=== PATIENT | male | born 1950 | race Caucasian/White ===

== ENCOUNTER → 2021-07-29 10:05 | Outpatient (CLI) | payer OTHER, SELFPAY ==
[2021-07-29 11:08] LABS: Prostate Specific Antigen 4.64 ng/mL (0.10-4.00)
== END ==
PROVIDERS: PCP Family Medicine; Referring Provider Specialist; Visit Provider Specialist
DX: R97.20 Elevated prostate specific antigen [PSA] (principal); N40.1 Benign prostatic hyperplasia with lower urinary tract symptoms; N13.8 Other obstructive and reflux uropathy; Z80.42 Family history of malignant neoplasm of prostate
CPT/HCPCS: 36415; 51798; 81002; 84153; 99214

== ENCOUNTER → 2022-10-01 11:05 | Outpatient (CLI) | payer OTHER, SELFPAY ==
[2022-10-01 11:24] LABS: COVID19 -Nasal RAPID Negative (Negative)
== END ==
PROVIDERS: PCP Family Medicine; Visit Provider Specialist
DX: Z20.822 Contact with and (suspected) exposure to COVID-19 (principal)
CPT/HCPCS: 87635

== ENCOUNTER 2022-10-04 10:48 | Inpatient (IN) | payer OTHER, SELFPAY ==
[2022-09-29 13:56] VITALS: BMI 25.7
[2022-10-04] VITALS (10 sets, daily range): BP systolic 106–169; BP diastolic 41–88; PULSE 75–88; RESP 11–17; TEMP 36.9–37.8; O2SAT 95–98; BMI 25.7
--- NOTE | 2022-10-04 | PATH_ITS ---
[facility] Accession Number: [id number] . 01 Material submitted: . PART A: lymph node - RIGHT PELVIC LYMPH NODES PART B: lymph node - LEFT PELVIC LYMPH NODES PART C: prostate - PROSTATE WITH ATTACHED SEMINAL VESICLES . 01 Diagnosis: A. Right Pelvic Nodes, Dissection: Three lymph nodes negative for metastatic carcinoma by immunohistochemistry studies (0/3). . B. Left Pelvic Lymph Nodes, Dissection: Three lymph nodes negative for metastatic carcinoma by immunohistochemistry (0/3). . C. Prostate with Attached Seminal Vesicles, Prostatectomy: Positive for prostatic adenocarcinoma. Please see Cancer Case Summary, below. . . CANCER CASE SUMMARY: Procedure: Radical prostatectomy with attached seminal vesicles. Prostate Weight: 27 grams. Prostate Size in Centimeters: 5.9 x 3.9 x 3.2. . Tumor Histologic type: Acinar adenocarcinoma. Histologic grade Grade group 1 (Yuma score 3+3=6). Intraductal carcinoma: Not identified. Cribriform glands: Not identified. Treatment effect: No known presurgical therapy. . Tumor quantitation Estimated percentage of prostate involved by tumor: 31-40%. Greatest dimension of dominant nodule: 20 mm. Location of dominant nodule: Anterior, slice 2 of 6. Extraprostatic extension: Not identified. Cellular focus in C13 is negative for epithelial tumor by immunohistochemistry studies. Urinary bladder neck invasion: Not identified. Seminal vesicle invasion: Not identified. Lymphovascular invasion: Not identified. . Margins Margin status: All margins negative for invasive carcinoma. . Regional lymph nodes Regional lymph node status: All regional lymph nodes negative for tumor. . Distant metastasis Distant metastasis: Not applicable. . Pathologic stage classification (pTNM, AJCC 8th Edition): pT2 pN0 (no positive regional nodes) pM: Not applicable. . Additional findings: Scattered necrotizing granulomas present. AFB and GAS stains performed on block C9 are negative for acid fast and fungal organisms; the control tissue stained appropriately. MRV 10/15/2022 1319 Local . 01 Comment: As part of routine it quality assurance analyst, slide C13 of this case was also reviewed by Dr. Zamarripa, who agrees with the interpretation. . 01 Electronically signed: . Africa Miller MD, Pathologist NPI- [id number] . 01 Gross description: . A. Received in formalin labeled with the patient's name, and RT pelvic lymph nodes, and consists of a yellow irregular soft tissue fragment measuring 3.2 x 2.2 x 0.6 cm. Palpation reveals three causey lymph node candidates ranging from 0.6 to 1.7 cm in greatest dimension. Sections are submitted as follows; . A1: Two intact lymph node candidates. A2: Single bisected lymph node candidate. . B. Received in formalin labeled with the patient's name, and left pelvic lymph nodes, and consists of a fragment of irregular yellow soft tissue measuring 2.9 x 1.5 x 0.8 cm. Palpation reveals three causey lymph node candidates ranging from 0.7 to 1.6 cm in greatest dimension. Sections are submitted as follows: . B1: Two intact lymph node candidates. B2: Single bisected lymph node candidate. . C. Received in formalin labeled with the patient's name, and prostate with attached seminal vesicles, and consists of a prostate with attached bilateral seminal vesicles weighing 27 grams and measuring 5.9 cm SI, 3.9 cm ML, and 3.2 cm AP. The external surface is causey to brown and roughened. The right seminal vesicle measures 2.9 cm in length and 0.9 cm in diameter while the left seminal vesicle measures 2.2 cm in length and 0.8 cm in diameter. The margins are inked as follows: right anterior blue, left anterior green, posterior black. The specimen is sectioned from apex to base into six slices which reveal an ill-defined pale yellow hard area located anteriorly and measuring 1.8 x 1.7 x 1.7 cm. The remaining parenchyma is causey-brown and unremarkable. Library Clerical Assistant sections are submitted as follows: . C1: Slice 1 right apex margin perpendicular. C2: Slice 1 left apex margin perpendicular. C3: Right base margin perpendicular. C4: Left base margin perpendicular. C5: Library Clerical Assistant left seminal vesicle and vas deferens. C6: Library Clerical Assistant right seminal vesicle and vas deferens. C7: Entire slice 2. C8-C9: Composite slice 3. C10-C11: Composite slice 4. C12-C13: Composite slice 5. ([id number]) /MRV 10/06/2022 1828 Local . 01 Microscopic: . An PAZ immunohistochemical stain is performed to further evaluate the cells of interest. The control stains showed appropriate reactivity. . RESULTS: Blocks A1, A2, B1 and B2: PAZ: Negative for metastatic tumor. Findings support an interpretation of negative for metastatic carcinoma. . C13 PAZ: Negative in region of interest. Findings mitigate against the presence of extraprostatic extension. . 01 Pathologist provided ICD-10: C61 . 01 CPT . 589886, 784884, [id number], [id number], 904889, 138111 Specimen Comment: A courtesy copy of this report has been sent to [phone] Performed at: 01 [facility] [address] [place] [address] [address] [facility], [place], [place] [id number] MD Saurav Maria MD Phone: [phone]
[2022-10-04] MEDS: LACTATED RINGERS 1,000 ML 21 ML IV ×2 (11:00→13:44)
--- NOTE | 2022-10-04 12:20 | PM.PREOP ---
Pre-operative Note COVID-19 Criteria for continued procedure: Expected advancement of disease process, Possibility delay results in more complex future surgery or treatment, Deterioration of the patient's condition or overall health, Delay expected to result in less-positive ultimate med/surg outcome and Non-surgical alternatives not available or appropriate per current SOC Interval Note History & Physical reviewed/Exam performed by Physician: Yes Changes to H&P: No
[2022-10-04] MEDS: CEFAZOLIN 2 GM/100 ML PREMIX 100 ML IV (12:50)
--- NOTE | 2022-10-04 13:13 | SUR.OPER ---
Addendum entered by Lynda Latham R.N. 10/04/22 13:15: Illiac crest at break in bed, bed extended with back and feet down. Original Note: Supine on padded OR bed, head on pillow, arms secured on padded arm boards at <90 degrees abduction, legs uncrossed, safety belt at thigh, tape over blanket over lower legs. Gel pad under heels, pillow under knees.
[2022-10-04] MEDS: BUPIVACAINE LIPOSOME 266 MG/20 ML VIAL INJ (13:35)
[2022-10-04] MEDS: SODIUM CHLORIDE 0.9% FLUSH 20 ML IV (13:36)
[2022-10-04 13:39] LABS: Appearance Urine UA CLEAR; Bilirubin Urine UA NEGATIVE (NEGATIVE); Color Urine UA YELLOW; Glucose Urine UA NEGATIVE (Negative); Ketones Urine UA TRACE (NEGATIVE); Leukocyte Esterase Urine UA NEGATIVE (NEGATIVE); Nitrite Urine UA NEGATIVE (Negative); Occult Blood Urine UA 2+ (Negative); Protein Urine UA NEGATIVE (Negative); Urobilinogen Urine UA 0.2 E.U./dL (0.2); pH Urine UA 5.5 (4.5-8.0)
[2022-10-04 13:49] LABS: Bacteria Urine None Seen; Culture Indicated Urine Cult Not Indicated; RBC Urine 1-5/HPF (0-5/HPF); Squamous Epithelial Cell Urine 5-10 /HPF (0-5/HPF); WBC Urine None Seen (0-5/HPF)
[2022-10-04] MEDS: TRANEXAMIC ACID 1,000 MG in SODIUM CHLORIDE 0.9% 100 ML 200 MG IV (13:50)
[2022-10-04] MEDS: ACETAMINOPHEN IV 1,000 MG/100 ML VIAL 400 MG IV (15:10)
--- NOTE | 2022-10-04 15:46 | P.OP_ITS ---
Operative Date/Time/Diagnoses Date of procedure: 10/04/22 Time of procedure: 15:35 Pre-op diagnosis: Prostate cancer Post-op diagnosis: same Procedure & Clinicians Procedure: 1. Radical retropubic prostatectomy and bilateral pelvic lymphadenectomy. Same procedure as scheduled: Yes Indications: 1. Prostate cancer Surgeon: Dwayne Montana Build And Release Manager: Matthew Huff Click Yes if Unassisted: No Anesthesia Type: General and Local (1.33% Exparel) Operative Notes Findings: 1. Palpably and visibly normal pelvic lymph nodes. 2. Normal midline abdominal pelvic tissue planes. 3. Normal appearing and palpable prostate and seminal vesicles. Closure Type: primary Specimen(s): other (1. Bilateral pelvic lymph nodes. 2. Prostate with attached seminal vesicles.) Applied: catheter (Eighteen [place] silicone Brand catheter to gravity drainage.) Estimated Blood Loss (mL): 50 Blood products transfused: none Procedure in detail: Patient was positioned in supine was administered general anesthesia following successful placement of Duramorph spinal anesthesia. The abdomen, genitalia, and groin were then prepped and draped in sterile fashion. A 20 [place] Brand catheter was inserted lower urinary track in the balloon was filled to 20 cc and the bladder contents drained. A midline infraumbilical incision was then made using a combination of sharp, blunt, and cautery technique to level of the extraperitoneal pelvic fat. The anterior and lateral pelvic sidewalls were then carefully exposed using blunt technique. Bilateral pelvic lymph node dissection was then carried out using the same steps and maneuvers bilaterally as follows: The thin abdomen tissue overlying the external iliac vein was carefully elevated and divided along its length. External iliac vein was in carefully reflected anteriorly and laterally in the remington packet was carefully dissected from its confines. The obturator nerve in vessels were identified and were from the operative field during the lymph node packet dissection. The LigaSure Impact device was then used to maintain hemostasis and create lymph stasis proximally and distally. Each remington packet was then handed off the field to be submitted for routine gross and microscopic examination. The endopelvic fascia was then carefully divided on either side of the prostate and levator musculature was reflected distally. The dorsal venous complex was then gathered with a large Cody clamp and careful manipulation downward created access to the dorsal venous complex which was then divided using the LigaSure Impact device. Hemostasis was excellent. The pupil prostatic ligaments were divided in conducting this maneuver. Careful dissection was then carried out using blunt and cautery technique and the prostatic apex was then isolated and the membranous urethra was identified. The membranous urethra was then isolated and elevated off the rectal wall. Was then divided sharply just beyond the prostate. A catheter was then brought into the pelvis to allow reflection of the prostate anteriorly and superiorly. The rectal urethralis musculature was then carefully peripheral late in the midline and then were divided using cautery technique to elevate the prostate apex. Blunt technique was then used to create a plane between the anterior rectal wall and non VA is fashion. The posterior lateral vascular pedicles were then carefully isolated sequentially. Large heme lock clips were applied on the patient's side and on the prostate side the pedicles were divided using LigaSure Impact device. Now with the prostate elevated and reflected at the level of the seminal vesicles 10 on these fascia was carefully opened in the ample the vas in the bilateral seminal vesicles were identified. The up is the vas were carefully isolated. Large clips were applied proximally distally and then were sharply divided. The seminal vesicles were then carefully dissected from the confines with application of medium heme lock clips were indicated for hemostasis. Now meticulous blunt dissection was carried out the level of the bladder neck to separate it from the base of the prostate circumferentially. The bladder neck was then divided and the prostate with attached seminal vesicles were submitted for routine gross and microscopic examination. Next, the bladder mucosa was effaced using a Lembert like technique to create neobladder neck. The Merrick sound was then advanced through the penis and then the flanges were engaged to expose the membranous urethra for visualization. 2-0 Monocryl suture replaced at 2, 4, 6, 8, and 10 o'clock through the membranous urethral stump. The same sutures were then brought through their corresponding position through the neobladder neck. An 18 [place] silicone Brand catheter was then advanced through the penile meatus into the pelvis and then the tip was carefully positioned within the bladder lumen. The balloon was then filled with 15 cc of sterile for water. Gentle traction was applied laura approximating the reconstructed bladder neck and urethral stump stump. The sutures were tied down individually thus completing the vesicourethral anastomosis. Catheter was then irrigated and th ere is no evidence of blood or clot within the bladder lumen. Next a 15 [place] Rah drain was positioned the space of Retzius and brought out through a separate stab incision to the right of midline incision. The drain was secured of level the skin using a Sony sandal technique in usual fashion. The midline rectus fascia was then reapproximated using a running 0 PDS beginning each at the superior, in the inferior incision apex, then running each toward the midline, at which point they were tied to 1 another. The subcuticular layer was reapproximated using a running 2-0 Vicryl. The skin was reapproximated using running subcuticular 4-0 Monocryl. Skin surface was cleaned and dried. Telfa gauze was then tailored appropriately for the drain site and the midline infraumbilical incision. Transparent Op site was then applied over each of these for the finish dressing. The catheter was placed to gravity drainage and the Rah drain was placed to bulb self suction. The patient was then awakened, transferred to [facility], and transported to recovery in stable condition. Complications: none Post-operative Condition: stable Disposition: PACU Plan for aftercare: Admit to acute care.
[2022-10-04] MEDS: LACTATED RINGERS 1,000 ML 125 ML IV (16:45)
--- NOTE | 2022-10-04 17:29 | PC.NURSE ---
Patient brought up from PACU 1620. Oriented to room and call light. VSS. Denies pain at this time. Bulb drain to right abdomen intact and compressed. Brand in place draining clear yellow urine. Lower abdomen/pelvic incision is covered with telfa and tegaderm and is CDI. Call light placed within reach.
[2022-10-04] MEDS: ATORVASTATIN 20 MG TABLET 10 MG PO (20:43)
[2022-10-05] VITALS: BP 116/65; PULSE 70; RESP 17; TEMP 36.8; O2SAT 94
[2022-10-05] MEDS: LACTATED RINGERS 1,000 ML 125 ML IV (00:12)
[2022-10-05 04:00] VITALS: BP 120/63; PULSE 78; RESP 17; TEMP 37.4; O2SAT 96
--- NOTE | 2022-10-05 04:26 | PC.NURSE ---
Pt is AxOx4, needs STA and cooperative. VSS, pt denies pain and slept well all night. Brand is draining clear and yellow urine. No other changes. Continue monitor.
[2022-10-05] MEDS: LEVOTHYROXINE 150 MCG TABLET PO (05:36)
[2022-10-05] MEDS: PANTOPRAZOLE DR 20 MG TABLET PO (05:36)
[2022-10-05 08:00] VITALS: BP 135/63; PULSE 69; RESP 18; TEMP 36.5; O2SAT 97
[2022-10-05] MEDS: ENOXAPARIN 40 MG/0.4 ML SYRINGE SUBCUT (08:42)
--- NOTE | 2022-10-05 10:34 | CM.DANOTE ---
DCP: Case received, EMR reviewed and met with patient. Introduced self and role. Was able to obtain information regarding patient's baseline activity status prior to his surgery. DCP assessment completed with information currently available. Patient is a 72 year old male who admitted yesterday morning to the care of the urologist team. PCP: Dr. Burkett. Payer: confirmed: [facility]. Patient came to the hospital via private vehicle for a surgical procedure. Patient had radical retropubic prostatectomy and bilateral pelvic lymphadenectomy. Patient has history of prostace cancer. Met with patient in his room. He is alert and oriented, and resides with spouse, Julieth, in [place]. He was sitting up in his chair. He is independent at baseline, and has been employed at [employer]. P: DCP to continue to follow. Patient should be able to go home when deemed medically stable. Anabella Marcelino RN/Porcelain Enameler - Discharge Planning/Care Management Advanced directive, confirm from FAMILY Start: 10/04/22 16:59 Freq: Q24H Status: Active Protocol: Document 10/04/22 17:02 CLP (Rec: 10/04/22 17:02 CLP [id number]) Advance Directive, confirm on record Time 17:02 Person contacted patient Copy received No CM Discharge Assessment Start: 10/05/22 10:32 Freq: Status: Active Protocol: Document 10/05/22 10:33 (Rec: 10/05/22 10:34 [id number]) Discharge Planning Assessment Assigned Business Continuity Manager Anabella Marcelino RN/Porcelain Enameler Advance Directives? Yes Advance Directives on File No History Provided By Patient,Medical Record Prior Living Arrangements House Household Members spouse Type of transporation used prior to Drives own vehicle admit Independent with ADL's Yes Is patient alert and oriented? Yes Caregiver for Another Yes Discharge Plan Home Transportation Arrangement Spouse Referrals Initiated None needed Whiteboard Updated in Patient Room with Yes name and ext. # of Business Continuity Manager Review Status In Process Next Review Type Continued Stay Review Pre-Anesthesia Assessment Start: 09/29/22 13:56 Freq: Status: Active Protocol: Document 09/29/22 13:56 CAB (Rec: 09/29/22 14:42 CAB [id number]) Pre-Anesthesia Assessment Preferred Name Tristin Patient Information Reviewed Via Phone Assessment Comment COVID screen @ 10/01/22 Primary Care Provider Matthew Burkett Seen Specialist in Last 12 Months Yes Specialist Seen Laborer Operator,Urologist Primary Language Citizen Of [place] Yoker Machine Operator Required No Height 6 ft 1 in Weight 195 lb Body Mass Index (BMI) 25.7 Hearing Ability Normal Visual Impairment No Limitations Visual Assist None Dentition Type Teeth, Natural Present Barriers to Learning None Hx Anesthesia Reactions Yes: PONV Hx Family Anesthesia Reaction No Hx Malignant Hyperthermia No Hx Blood Transfusions No Anesthesia Review Requested No alcohol intake never Smoking Status Never smoker Substance Use Type does not use Pain Present Pain Reported History of Falling (Recent or History of No ) Patient is completely paralyzed or No completely immobile Mental Status Oriented to own ability Is patient on oxygen? No Does patient have SHELTON/SOB No Hx Sleep Apnea No Currently Taking a Beta Christin No Can You Climb a Flight of Stairs Without No SOB Hx Chest Pain No Hx SOB No Hx Syncope or Dizziness No Anti-Coagulant Therapy Yes: ASA 162mg BID-pt will check w/cardiology on when/if to hold Has a Laborer Operator Yes: Visit 04/08/[address] Liu Cardiac Testing No Hx Pacemaker/ICD No Pacemaker Rep Required? No Comment Cardiac records scanned Diet Type At Home Regular Dysphagia No Gastrointestinal Symptoms Reflux Chronic UTI No Bladder Pattern Frequency Urinary Catheter Present No Hx Urinary Self Catheterization No Diabetes No Hx Drug Resistant Organism No Presence of External or Internal Medical Yes: Cardiac stent Devices Have you had any close contact with No someone diagnosed with COVID-19? Received a COVID vaccine? Yes Received all doses? Yes Marital Status Lives With spouse Current Living Arrangements House Number of Floors (Floors) One Floor Support System Spouse Does the Patient Have Assistance After Yes Surgery Patient Discharge Plan Description Return Home Comment Pt advised 2 day length of stay per surgeon Feels Safe in Current Environment Yes Been Physically Hurt or Threatened By a No Person in Current Environment Do you have thoughts of harming yourself None or others? Are you currently considering suicide? No Do you have a plan to hurt yourself or No Plan others? Do You Have Any Spiritual Beliefs That No May Affect Your HC Choices? Do You Have Any Cultural Practices That No May Affect Your HC Choices? Who Can We Speak to About Patient's Care Family, friends Identifying Code for Release of Patient Declines to issue Information Health Care Proxy/Next of Kin Julieth () Health Care Proxy Emergency Contact Name Julieth () Emergency Contact Advance Directives? Yes Advance Directives on File No Requested Patient Bring Advanced Yes Directives DOS Power of Window Installer No PAC Instructions Medications to take/avoid,No ETOH/petroleum product on skin DOS,NPO,Sensory aids,Sturdy shoes/comfortable clothes,Do not bring valuables and remove jewelry
[2022-10-05 12:00] VITALS: BP 126/58; PULSE 75; RESP 18; TEMP 36.8; O2SAT 97
--- NOTE | 2022-10-05 13:07 | PM.DS.1 ---
History of Present Illness History of Present Illness Date Patient Seen: 10/05/22 Time Patient Seen: 12:40 Chief complaint: Prostatectomy Narrative: Patient is a 72-year-old male that underwent uncomplicated radical retropubic prostatectomy and bilateral pelvic lymphadenectomy under Duramorph spinal and general anesthesia 10/04/2022, for presumed localized adenocarcinoma the prostate and strong family history of prostate cancer. Discharge Providers Provider Date of admission: 10/04/22 10:48 Discharge Date: 10/05/22 Primary care physician: Matthew Burkett MD Discharge provider: Dwayne Montana MD Summary Hospital Course Discharge Diagnosis: 1. Prostate cancer. 2. Family history of prostate cancer. Hospital Course: Patient was admitted on 10/04/2022 and underwent uncomplicated radical retropubic prostatectomy and bilateral pelvic that ectomy under general and Duramorph spinal anesthesia. His postoperative course was entirely unremarkable in that he tolerated general diet was able to transfer and ambulate without assistance and had no significant postoperative pain and did not require narcotic analgesics. He was stable for discharge in the morning of 10/05/2022. Routine activity, hygiene, and driving, in catheter care use and restriction instructions were provided. Postoperative medication resumption and additions reviewed and explained including common side effects, and precautions. Exam Vital Signs (past 8 hours): - 10/05/22 08:00 10/05/22 12:00 Temperature 97.7 F 98.3 F Pulse Rate 69 75 Respiratory Rate 18 18 Blood Pressure 135/63 126/58 L Pulse Oximetry 97 97 Oxygen Flow Rate 0 0 Oxygen Delivery Method Room Air Oxygen Flow Rate 0 Narrative Exam Narrative: Sitting upright in bed and in no distress. Abdomen-scaphoid soft. Dressing is intact. GUILLERMO with scant serosanguineous output. Genitalia-indwelling Brand catheter with clear light straw-colored output without clots. Extremities-no edema, pallor, or cyanosis. Objective Labs Labs: Laboratory Results - last 24 hr 10/04/22 13:05 Urine Color Yellow Urine Appearance Clear Urine pH 5.5 Ur Specific [employer] [employer] 1.020 Urine Protein Negative Urine Glucose (UA) Negative Urine Ketones Trace H Urine Occult Blood 2+ H Urine Nitrate Negative Urine Bilirubin Negative Urine Urobilinogen 0.2 Ur Leukocyte Esterase Negative Urine RBC 1-5/hpf Urine WBC None seen Ur Squamous Epith Cells 5-10 /hpf H Urine Bacteria None seen Ur Culture Indicated? Cult not indicated PFSH Medical History Arthritis BPH w urinary obs/LUTS Elevated PSA Family history of prostate cancer GERD (gastroesophageal reflux disease) Hiatal hernia History of left heart catheterization (01/29/22) HTN (hypertension) Hyperlipemia Neuropathy Non-STEMI (non-ST elevated myocardial infarction) (2010) Prostate cancer Thyroid cancer (~1991) Thyroid disease Surgical History H/O heart artery stent (2010) H/O laparoscopy History of surgery Hx of arthroscopy of right knee Hx of bilateral cataract extraction Hx of thyroidectomy (~1991) Hx of tonsillectomy Family History Father Cancer CAD (coronary artery disease) Mother CVA (cerebral vascular accident) UTI (urinary tract infection) Social History marital status: number of children: 2 household members: spouse 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 Stable postoperative day 1 status post radical retropubic prostatectomy and bilateral pelvic lymphadenectomy. 2. Pathology pending. Plan of Treatment: 1. Discharge home today. 2. Outpatient supervised voiding trial approximately 2 weeks, to be arranged with [facility]. 3. Catheter care and use instruction. 4. Follow-up in discuss pathology report by telephone when final. Discharge Plan Discharge Plan Patient Disposition: Home Provider Discharge Comment: Contact [facility]rology Clinic 07/06/2022 schedule outpatient follow-up. Discharge orders & Medications Prescriptions: New oxycodone 5 mg Tablet 5 mg PO Q4H PRN (Reason: Pain, Moderate (4-6)) Qty: 20 0RF enoxaparin [Lovenox] 40 mg/0.4 mL Syringe 40 mg SUBCUT DAILY 30 Days Qty: 12 0RF ciprofloxacin HCl 250 mg tablet 250 mg PO BID Qty: 6 0RF Rx Instructions: Take 1st tablet in the morning, the day before catheter removal. Continued cholecalciferol (vitamin D3) [Vitamin D3] 25 mcg (1,000 unit) Tablet 25 mcg PO DAILY levothyroxine 150 mcg capsule 150 mcg PO DAILY omeprazole 20 mg capsule,delayed release(DR/EC) 20 mg PO DAILY atorvastatin 10 mg tablet 20 mg PO DAILY ascorbic acid (vitamin C) 500 mg capsule 500 mg PO DAILY zinc sulfate [Zinc-15] 1 tab PO DAILY Discontinued finasteride 1 mg tablet 1 mg PO DAILY aspirin 81 mg tablet,delayed release (DR/EC) 162 mg PO BID Label Comments: Pt has reduced to 81mg tablets, but has not completely stopped prior to surgery. Follow up/Referrals: Matthew Burkett MD [Primary Care Provider] - Diet/Activity/Treatments Diet: Diet as Tolerated Activity: Left no objects heavier than 15 lb x 4 weeks. Catheter: 2-way Brand Catheter comment: Use large bag in-home and and night. Use leg bag when out of home. Skin/Wound/Dressing Care Skin care: May shower daily. No submersion in water x2 weeks. Dressing: Leave incision open to air. Visit Report/Discharge Packet Instructions: DI for Radical Prostatectomy, DI for Prescription Opioid Use Stand Alone Forms: Surgery Discharge Discharge Data Primary Care Provider: Matthew Burkett
== END 2022-10-05 14:18 | disposition home or self-care (01) | DRG 708 ==
PROVIDERS: Admitting Provider Specialist; PCP Family Medicine; Referring Provider Specialist; Visit Provider Specialist
PROC: 0VT00ZZ Resection of Prostate, Open Approach (ICD-10-PCS; principal; 2022-10-04 12:15)
DX: C61 Malignant neoplasm of prostate (principal); E07.9 Disorder of thyroid, unspecified; E78.5 Hyperlipidemia, unspecified; K21.9 Gastro-esophageal reflux disease without esophagitis; Z20.822 Contact with and (suspected) exposure to COVID-19
CPT/HCPCS: 55845; 81001; 87086; 87635; C9290; J0131; J0690; J1100; J1650; J2250; J2274; J2405; J2704; J3010

== ENCOUNTER 2022-10-20 13:45 | Outpatient (RCR) | payer OTHER, SELFPAY ==
[2022-10-04 16:50] VITALS: BMI 25.7
--- NOTE | 2022-10-13 10:33 | PT.OIE ---
Current Diagnoses Malignant neoplasm of prostate (10/13/22) Other obstructive and reflux uropathy (10/13/22) Benign prostatic hyperplasia with lower urinary tract symptoms (10/13/22) Elevated prostate specific antigen [PSA] (10/13/22) Family history of malignant neoplasm of prostate (10/13/22) Past Medical History (Last Reviewed 10/05/22 @ 13:11 by Dwayne Montana MD) Arthritis BPH w urinary obs/LUTS Elevated PSA Family history of prostate cancer GERD (gastroesophageal reflux disease) Hiatal hernia History of left heart catheterization (01/29/22) HTN (hypertension) Hyperlipemia Neuropathy Non-STEMI (non-ST elevated myocardial infarction) (2010) Prostate cancer Thyroid cancer (~1991) Thyroid disease Past Surgical History (Last Reviewed 10/05/22 @ 13:11 by Dwayne Montana MD) H/O heart artery stent (2010) H/O laparoscopy History of surgery Hx of arthroscopy of right knee Hx of bilateral cataract extraction Hx of thyroidectomy (~1991) Hx of tonsillectomy Visit Care Team Role Provider Type Matthew Burkett MD Family Provider Non-Staff Primary Care Provider Specialty: Family Practice Address: [address] [place] [address], [id number] Email: Dwayne Montana MD Attending Provider Physician Referring Provider Specialty: Urology Address: [address] [place] [address], [id number] Email: Physical Therapy Initial Evaluation PT-OP-A Visit Information Start: 10/08/22 12:01 Freq: Status: Active Protocol: Document 10/13/22 07:30 AMB (Rec: 10/13/22 08:15 AMB [id number]) Out-Patient Physical Therapy Visit Information Visit Information Visit Type Initial Evaluation Visit Start Time 07:30 Visit Stop Time 08:15 Total Visit Minutes 45 Visit Number 1 PT-OP-B Current Condition Start: 10/08/22 12:01 Freq: Status: Active Protocol: Document 10/13/22 07:30 AMB (Rec: 10/13/22 08:15 AMB [id number]) Current Condition History of Current Condition Onset Date 10/04/22 Current Complaints s/p prostatectomy History of Current Condition Before surgery was getting up 1-2/night. Was urinating sometimes every hour and a half but then could hold 4-5 hours. Denies urgency, denies any previous leaking. Is currently catheterized, getting catheter out on Tuesday . Personal Factors Other Personal Factors That May Effect Hx [place], stent placed 2009, hx Therapy/Recovery thyroid CA PT-OP-I Pelvic Floor Start: 10/08/22 12:01 Freq: Status: Active Protocol: Document 10/13/22 07:30 AMB (Rec: 10/13/22 08:15 AMB [id number]) Pelvic Floor Assessment Comments Pelvic Floor Comments Pt declined biofeedback and internal asessment, feels he is maria eugenia his pelvic floor appropriately and reports he can hold for 10 seconds PT-OP-T Assessment and Plan Start: 10/08/22 12:01 Freq: Status: Active Protocol: Document 10/13/22 07:30 AMB (Rec: 10/17/22 10:33 AMB [id number]) Physical Therapy Assessment Rehab Potential Rehabilitation Potential Good Evaluation Complexity Number of Personal Factors/Comorbidities 1-2 Number of Body Systems Impaired 1-2 Clinical Presentation at Evaluation Stable Impairments Impairments Functional Activities,Strength Goals Two Short Term Goal (STG) Tristin will move from sit to stand without leaking urine. 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 LTG Duration 10 weeks One Impairment Pelvic floor strength Short Term Goal (STG) Tristin will contract his pelvic floor while moving from sit to stand. STG Duration 5 weeks [facility]cf Goal (LTG) Tristin will be independent with a pelvic floor strengthening HEP. LTG Duration 10 weeks Assessment Summary Assessment Tristin attends physical therapy 9 days s/p prostatectomy, he is still catheterized, so he cannot speak to any incontinence yet. He declined internal and biofeedback assessment at this time, but would be open to it if he is having incontinence after the catheter is removed. After extensive education in pelvic floor musculature he felt confident he could contract his muscles. He will benefit from physical therapy for more strengthening, depending on his level of incontinence after catheter removal. Physical Therapy Plan Frequency and Duration Frequency of Treatment 1x/Week Duration of treatment (weeks) 10 Plan of Care Start Date 10/13/22 Plan of Care End Date 12/22/22 Therapeutic Interventions Therapeutic Interventions Home Exercise Program,Joint Mobilizations,Manual Therapy, Neuromuscular Re-education, Self-Care/Home Management, Therapeutic Activities, Therapeutic Exercises Modalities Biofeedback,Electric Stimulation Next Visit Focus/Plan Next Note Type Treatment Note Next Visit Plan Review HEP, reassess s/p catheter removal
--- NOTE | 2022-10-13 10:34 | PT.OPPOC ---
Physical, Occupational & Speech Therapy At [facility] Current Diagnoses Malignant neoplasm of prostate (10/13/22) Other obstructive and reflux uropathy (10/13/22) Benign prostatic hyperplasia with lower urinary tract symptoms (10/13/22) Elevated prostate specific antigen [PSA] (10/13/22) Family history of malignant neoplasm of prostate (10/13/22) Visit Care Team Role Provider Type Matthew Burkett MD Family Provider Non-Staff Primary Care Provider Specialty: Family Practice Address: [address] [place] [address], [id number] Email: Dwayne Montana MD Attending Provider Physician Referring Provider Specialty: Urology Address: [address] [place] [address], [id number] Email: Plan Of Care PT-OP-T Assessment and Plan Start: 10/08/22 12:01 Freq: Status: Active Protocol: Document 10/13/22 07:30 AMB (Rec: 10/17/22 10:33 AMB [id number]) Physical Therapy Assessment Rehab Potential Rehabilitation Potential Good Evaluation Complexity Number of Personal Factors/Comorbidities 1-2 Number of Body Systems Impaired 1-2 Clinical Presentation at Evaluation Stable Impairments Impairments Functional Activities,Strength Goals Two Short Term Goal (STG) Tristin will move from sit to stand without leaking urine. STG Duration 5 weeks Auditor In Charge Goal (LTG) Tristin will woodworking belt sander his kitchen to vegetable cook for 30 minutes without leaking. LTG Duration 10 weeks One Impairment Pelvic floor strength Short Term Goal (STG) Tristin will contract his pelvic floor while moving from sit to stand. STG Duration 5 weeks Mcfp Goal (LTG) Tristin will be independent with a pelvic floor strengthening HEP. LTG Duration 10 weeks Assessment Summary Assessment Tristin attends physical therapy 9 days s/p prostatectomy, he is still catheterized, so he cannot speak to any incontinence yet. He declined internal and biofeedback assessment at this time, but would be open to it if he is having incontinence after the catheter is removed. After extensive education in pelvic floor musculature he felt confident he could contract his muscles. He will benefit from physical therapy for more strengthening, depending on his level of incontinence after catheter removal. Physical Therapy Plan Frequency and Duration Frequency of Treatment 1x/Week Duration of treatment (weeks) 10 Plan of Care Start Date 10/13/22 Plan of Care End Date 12/22/22 Therapeutic Interventions Therapeutic Interventions Home Exercise Program,Joint Mobilizations,Manual Therapy, Neuromuscular Re-education, Self-Care/Home Management, Therapeutic Activities, Therapeutic Exercises Modalities Biofeedback,Electric Stimulation Next Visit Focus/Plan Next Note Type Treatment Note Next Visit Plan Review HEP, reassess s/p catheter removal Plan of Care Dates Plan of Care Start Date 10/13/22 Plan of Care End Date 12/22/22 Electronically Signed by: Marie Barrientos, PT 10/17/22 3925 If you are in agreement with this Plan of Care, please return a signed and dated copy. I have reviewed this Plan of Care and certify that the skilled therapy services above are required to meet the patient?s needs. Physician Signature Date Printed Name and Credentials Clinical Instructor Signature Printed Name and Credentials
--- NOTE | 2022-10-20 15:37 | PT.OTN ---
Current Diagnoses Malignant neoplasm of prostate (10/20/22) Other obstructive and reflux uropathy (10/20/22) Benign prostatic hyperplasia with lower urinary tract symptoms (10/20/22) Elevated prostate specific antigen [PSA] (10/20/22) Family history of malignant neoplasm of prostate (10/20/22) Physical Therapy Treatment Note PT-OP-A Visit Information Start: 10/08/22 12:01 Freq: Status: Active Protocol: Document 10/20/22 13:51 AMB (Rec: 10/20/22 14:32 AMB [id number]) Out-Patient Physical Therapy Visit Information Visit Information Visit Type Treatment Note Visit Start Time 13:45 Visit Stop Time 14:30 Total Visit Minutes 45 Visit Number 2 PT-OP-B Current Condition Start: 10/08/22 12:01 Freq: Status: Active Protocol: Document 10/13/22 07:30 AMB (Rec: 10/13/22 08:15 AMB [id number]) Current Condition History of Current Condition Onset Date 10/04/22 Current Complaints s/p prostatectomy History of Current Condition Before surgery was getting up 1-2/night. Was urinating sometimes every hour and a half but then could hold 4-5 hours. Denies urgency, denies any previous leaking. Is currently catheterized, getting catheter out on Tuesday . Personal Factors Other Personal Factors That May Effect Hx [place], stent placed 2009, hx Therapy/Recovery thyroid CA PT-OP-C Subjective Start: 10/08/22 12:01 Freq: Status: Active Protocol: Document 10/20/22 13:51 AMB (Rec: 10/20/22 14:32 AMB [id number]) OP-PT Subjective Patient Comments Patient Comments Tristin finding that standing is causing him some leaking, can contract pelvic floor muscles. PT-OP-I Pelvic Floor Start: 10/08/22 12:01 Freq: Status: Active Protocol: Document 10/13/22 07:30 AMB (Rec: 10/13/22 08:15 AMB [id number]) Pelvic Floor Assessment Comments Pelvic Floor Comments Pt declined biofeedback and internal asessment, feels he is maria eugenia his pelvic floor appropriately and reports he can hold for 10 seconds PT-OP-Q Treatments Start: 10/08/22 12:01 Freq: Status: Active Protocol: Document 10/20/22 15:28 AMB (Rec: 10/20/22 15:35 AMB [id number]) Therapeutic Exercises Sitting Exercises roll in Side bilateral Reps/Minutes hold 5x5 Standing Exercises mini lunge Side bilateral Reps/Minutes 10 mini squat Side bilateral Reps/Minutes 10 Other Exercises plank Other Exercise Name demonstrated as option instead of crunches PT-OP-T Assessment and Plan Start: 10/08/22 12:01 Freq: Status: Active Protocol: Document 10/20/22 13:51 AMB (Rec: 10/20/22 14:32 AMB [id number]) Physical Therapy Assessment Goals Two Short Term Goal (STG) Tristin will move from sit to stand without leaking urine. 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 LTG Duration 10 weeks One Impairment Pelvic floor strength Short Term Goal (STG) Tristin will contract his pelvic floor while moving from sit to stand. STG Duration 5 weeks Nursing Home Goal (LTG) Tristin will be independent with a pelvic floor strengthening HEP. LTG Duration 10 weeks Assessment Summary Assessment Pt is having the most leaks with moving from sit to stand and standing activities, does not feel like he can fully relax when he is in standing or else he leaks. 2 days post getting catheter removed, reports leaks are small. Discussed holding on return to exercise routine for the next few weeks as well as plank as option to reduce pressure of sit ups. Pt received education on role of decreasing pressure to try to decrease leaks. Physical Therapy Plan Frequency and Duration Frequency of Treatment 1x/Week Duration of treatment (weeks) 10 Plan of Care Start Date 10/13/22 Plan of Care End Date 12/22/22 Therapeutic Interventions Therapeutic Interventions Home Exercise Program,Joint Mobilizations,Manual Therapy, Neuromuscular Re-education, Self-Care/Home Management, Therapeutic Activities, Therapeutic Exercises Modalities Biofeedback,Electric Stimulation Next Visit Focus/Plan Next Note Type Treatment Note Next Visit Plan Review HEP, progress standing
--- NOTE | 2022-11-12 15:08 | PT.OPDS ---
Current Diagnoses Malignant neoplasm of prostate (10/20/22) Other obstructive and reflux uropathy (10/20/22) Benign prostatic hyperplasia with lower urinary tract symptoms (10/20/22) Elevated prostate specific antigen [PSA] (10/20/22) Family history of malignant neoplasm of prostate (10/20/22) Visit Care Team Role Provider Type Matthew Burkett MD Family Provider Non-Staff Primary Care Provider Specialty: Family Practice Address: [address] [place] [address], [id number] Email: Dwayne Montana MD Attending Provider Physician Referring Provider Specialty: Urology Address: [address] [place] [address], [id number] Email: Visit Number Visit Number 2 Discharge Summary PT-OP-B Current Condition Start: 10/08/22 12:01 Freq: Status: Active Protocol: Document 10/13/22 07:30 AMB (Rec: 10/13/22 08:15 AMB [id number]) Current Condition History of Current Condition Onset Date 10/04/22 Current Complaints s/p prostatectomy History of Current Condition Before surgery was getting up 1-2/night. Was urinating sometimes every hour and a half but then could hold 4-5 hours. Denies urgency, denies any previous leaking. Is currently catheterized, getting catheter out on Tuesday . Personal Factors Other Personal Factors That May Effect Hx [place], stent placed 2009, hx Therapy/Recovery thyroid CA PT-OP-C Subjective Start: 10/08/22 12:01 Freq: Status: Active Protocol: Document 10/20/22 13:51 AMB (Rec: 10/20/22 14:32 AMB [id number]) OP-PT Subjective Patient Comments Patient Comments Tristin finding that standing is causing him some leaking, can contract pelvic floor muscles. PT-OP-I Pelvic Floor Start: 10/08/22 12:01 Freq: Status: Active Protocol: Document 10/13/22 07:30 AMB (Rec: 10/13/22 08:15 AMB [id number]) Pelvic Floor Assessment Comments Pelvic Floor Comments Pt declined biofeedback and internal asessment, feels he is maria eugenia his pelvic floor appropriately and reports he can hold for 10 seconds PT-OP-T Assessment and Plan Start: 10/08/22 12:01 Freq: Status: Active Protocol: Document 11/12/22 15:07 AMB (Rec: 11/12/22 15:08 AMB [id number]) Physical Therapy Assessment Assessment Summary Assessment Pt called to cancel his remaining visits as he felt he was improving and on track and ready to be discharged. He was seen for two visits. Physical Therapy Plan Discharge Physical Therapy Discharge Reasons Patient Request
== END 2022-11-17 13:42 | disposition home or self-care (01) ==
LOC: PHYS 13:45
PROVIDERS: Family Provider Family Medicine; PCP Family Medicine; Referring Provider Specialist; Visit Provider Specialist
DX: C61 Malignant neoplasm of prostate (principal); Z80.42 Family history of malignant neoplasm of prostate; N40.1 Benign prostatic hyperplasia with lower urinary tract symptoms; N13.8 Other obstructive and reflux uropathy; R97.20 Elevated prostate specific antigen [PSA]
CPT/HCPCS: 97110; 97161